=== PATIENT | female | born 1990 ===

== ENCOUNTER 2016-07-16 09:11 | Emergency (ER) | payer BC, OTHER ==
--- NOTE | 2016-07-16 11:34 | UC ---
UC General HPI - HPI Summary HPI Summary: The patient comes in today for: 1. Left second toe trauma: Onset: Last night. Palliative/provocative: Touching and pressure makes the pain worse. There is pain with walking. Quality: Aches Region: Left second toe--distal phalanx and nail. Severity: 05/23 Time: Constant. Associated symptoms: Event: She stubbed her toe on the rim of the shower door frame. Immediately she saw blood. got a towel and stopped the bleeding. He put peroxide and and Neosporin on it. Tylenol was used for pain. Last tetanus vaccine 2010. LMP: She is . * - History of Current Complaint Chief Complaint: UCLowerExtremity Stated Complaint: FOOT INJURY Time Seen by Provider: 07/16/16 11:24 Hx Obtained From: Patient - Allergy/Home Medications Allergies/Adverse Reactions: Allergies Allergy/AdvReac Type Severity Reaction Status Date / Time Penicillins Allergy Rash Verified 07/16/16 09:44 Home Medications: Home Medications Acetaminophen TAB* [Tylenol TAB*] 2 PO DAILY 07/16/16 [History] Levothyroxine TAB* [Synthroid 75 MCG TAB*] 1 PO DAILY 07/16/16 [History] Vit W/ Ferrous Fumara [ Complete 14-0.4 mg] 1 PO DAILY [History] PMH/Surg Hx/FS Hx/Imm Hx Previously Healthy: No - 13-14 weeks . Endocrine History Of: Reports: Thyroid Disease Denies: Diabetes, Hyperthyroidism, Hypothyroidism, Dyslipidemia Cardiovascular History Of: Denies: Cardiac Disorders, Hypertension, Pacemaker/ICD, Myocardial Infarction , Congestive Heart Failure, Atrial Fibrillation, Deep Vein Thrombosis, Bleeding Disorders Respiratory History Of: Denies: COPD, Asthma, Bronchitis, Pneumonia, Pulmonary Embolism GI/ History Of: Denies: Gastroesophageal Reflux, Ulcer, Gastrointestinal Bleed, Gall Bladder Disease, Kidney Stones, Diverticulitis, Renal Disease, Urosepsis Neurological History Of: Denies: TIA, CVA, Dementia, Seizures, Migraine Psychological History Of: Denies: Anxiety, Depression, Bipolar Disorder, Schizophrenia, Post Traumatic Stress Disorder Cancer History Of: Denies: Lung Cancer, Colorectal Cancer, Breast Cancer, Prostate Cancer, Cervical Cancer Other History Of: Negative For: HIV, Hepatitis B, Hepatitis C, Anticoagulant Therapy - Surgical History Surgical History: Yes Surgery Procedure, Year, and Place: appendix, vocal fold reduction - Family History Known Family History: Positive: Cardiac Disease, Hypertension - Social History Occupation: Employed Full-time Alcohol Use: None Substance Use Type: None Smoking Status (MU): Never Smoked Tobacco Review of Systems Constitutional: Negative Skin: Rash Eyes: Negative ENT: Negative Respiratory: Negative Cardiovascular: Negative Gastrointestinal: Negative Genitourinary: Negative All Other Systems Reviewed And Are Negative: Yes Physical Exam Triage Information Reviewed: Yes Appearance: Well-Appearing, No Pain Distress, Well-Nourished Vital Signs: Initial Vital Signs Temp 98.6 F 07/16/16 09:38 Pulse 108 07/16/16 09:38 Resp 20 07/16/16 09:38 BP 134/85 07/16/16 09:38 Pulse Ox 100 07/16/16 09:38 Vital Signs Reviewed: Yes Eyes: Positive: Conjunctiva Clear. Negative: Discharge ENT: Positive: Hearing grossly normal. Negative: Pharyngeal erythema, Nasal congestion, Nasal drainage, TM bulging, TM dull, TM red, Tonsillar swelling, Tonsillar exudate Dental: Negative: Gross Decay/Caries @, Dental Fracture @ Neck: Positive: Supple, Nontender, No Lymphadenopathy. Negative: Nuchal Rigidity Respiratory: Positive: Chest non-tender, Lungs clear, No respiratory distress, No accessory muscle use. Negative: Crackles, Wheezing Cardiovascular: Positive: RRR, No Murmur Abdomen Description: Positive: Nontender, No Organomegaly, Soft. Negative: Distended, Guarding Musculoskeletal: Positive: Strength Intact, ROM Intact, No Edema Neurological: Positive: Alert, Muscle Tone Normal, Fatigued Psychological: Positive: Age Appropriate Behavior, Consolable Skin: Positive: Other - Her left second toe shows dried blood around the nail and distal toe. The nail has been traumatically moved distal from its usual lay the nailbed. No active bleeding. Positive swelling, but no tenderness to palpation from the volar end of the toe.. Negative: rashes, breakdown Course/Dx - Course Course Of Treatment: Patient was told to inspect the toe every day and how to dress it. - Differential Dx - Multi-Symptom Provider Diagnoses: Partial avulsion of the left second toe. Discharge - Discharge Plan Condition: Stable Disposition: HOME Patient Education Materials: Nail Avulsion (ED) Referrals: Delfina Barksdale [Primary Care Provider] - 1 Week (Please see your primary care provider in a week to see how well you are doing. If you get worse, please be seen sooner in the ER or through us.)
== END 2016-07-16 11:56 | disposition home or self-care (01) ==
LOC: UCEAST 09:11
DX: O26.891 Other specified pregnancy related conditions, first trimester (principal); Z3A.00 Weeks of gestation of pregnancy not specified; S91.205A Unspecified open wound of left lesser toe(s) with damage to nail, initial encounter; W22.8XXA Striking against or struck by other objects, initial encounter; Y93.9 Activity, unspecified; Y92.9 Unspecified place or not applicable; Z88.0 Allergy status to penicillin; E07.9 Disorder of thyroid, unspecified
CPT/HCPCS: 99202; G0463